=== PATIENT | female | born 1985 | race Caucasian/White ===

== ENCOUNTER 2016-09-26 21:27 | Emergency (ER) | payer OTHER ==
--- NOTE | ~2016-09-26 | CR63 ---
[facility] A Service of [facility] RADIOLOGY TEXT RESULTS PATIENT: MILTON GUILLAUME LOCATION: [facility] : 89 UNIT #: [id number] AGE: [address]: Dmitriy Crandall MD SEX: F ORDER DR: [id number] [facility] [address] [place], [place] [address] [id number] E MR#: [id number] Acc #: [id number] NAME: MILTON GUILLAUME : 1985 SEX: F STUDY DATE/TIME: 09/26/2016 21:05 UNIT: [facility] ROOM: STUDY DESCRIPTION: CR Chest 2 View Attending Physician: Dmitriy Crandall M.D. Ordering Physician: Dmitriy Crandall M.D. Primary Care Physician: [facility], MEDICAL IMAGING REPORT This report is preliminary unless electronic signature is present EXAM PA and lateral chest. DATE OF EXAM 09/26/2016 HISTORY Fever, cough and weakness today. FINDINGS 2 views of the chest demonstrate the cardiac size and pulmonary vascularity are normal. No infiltrates or effusions. Small calcified granuloma in lateral right mid lung. IMPRESSION No acute findings. No active disease. Dictated by... Cornel Leone M.D. THIS IS AN ELECTRONICALLY VERIFIED REPORT Cornel Leone M.D. at 09/26/2016 11:29 PM ELKIN/maylin TD: 09/26/2016 23:07 JOB #: [id number] MEDICAL IMAGING REPORT Page 1 of 1 COPY
[2016-09-26 17:33] LABS: INFLUENZA A NEG (NEG)
[2016-09-26 17:34] LABS: INFLUENZA B NEG (NEG)
[~2016-09-26 21:27] MED LIST: ULTRAM PO
== END 2016-09-26 22:33 | disposition home or self-care (01) ==
LOC: CED 21:27
DX: R50.9 Fever, unspecified (principal); R05 Cough; Z98.51 Tubal ligation status; R11.10 Vomiting, unspecified
CPT/HCPCS: 71020; 87804; 96374; 96375; 99284; J1100; J1200; J1885; J2765